=== PATIENT | female | born 1950 | race Caucasian/White ===

== ENCOUNTER → 2017-02-14 | Outpatient (CLI) | payer BC ==
[~2017-02-14] MED LIST: CHOL1000 PO; DICY10CA12 PO; DIPH25CA37 PO; DOCU100C31 PO; DRGTP12 TOP; ESCI1TAB10 PO; HYDR25TA5 PO; MAGIC1 PO; MECL1TAB42 PO; NSNN50 NAE; ONDA4TAB7 SL; OXYC-57 PO; OXYC1CAP5 PO; POLY335019 PO; POTA1080 PO; PROM25TA9 PO; TRAZ50TA35 PO
--- NOTE | 2017-02-15 08:09 | DIAGNOSTIC IMAGING REPORT ---
MRI soft tissue neck SOFT TISSUE NECK W/O CONTRAST CLINICAL HISTORY: NEOPLASM UNCERTAIN BEHAVIOR OF SKIN neoplasm TECHNIQUE: Multiaxial MRI acquisition. No contrast-enhanced or progressive COMPARISON STUDY: None FINDINGS: Endotracheal study to interpret the absence of prior studies as well as a history of prior multiple surgical procedures. At the level of the left anterior chain is an area of diminished signal on T1 images. This measures 10 x 12 x 10.5 mm. Appears to extend focally to the anterior periosteum of the anterior mandible. Bulk of it is within the subcutaneous soft tissues. No definite bony involvement. No abnormal periostitis. No significant cervical adenopathy. Major salivary glands are intact. IMPRESSION: 1. 10 x 12 x 10.5 mm area of hypodensity within the subcutaneous tissues left anterior mentum . 2. There appears to be potential linear fibrotic stranding to the anterior periosteum of the anterior mandible although no evidence for periostitis, bone marrow replacement or other bony abnormality is apparent. 3. Note is made of no evidence for vascular or significant perineural invasion within limitations of an unenhanced scan. 4. No significant kathe pathology. Electronically signed by: Parth Welsl M.D. 02/15/2017 8:07 AM Dictated Date/Time: 02/15/2017 8:04 AM
== END | disposition home or self-care (01) ==
LOC: C.MRI 18:11
PROVIDERS: ATTEND Otolaryngology
DX: D48.5 Neoplasm of uncertain behavior of skin (principal)

== ENCOUNTER → 2017-02-22 | Outpatient (CLI) | payer BC ==
--- NOTE | 2017-02-22 15:08 | MAMMOGRAPHY REPORT ---
BILATERAL DIGITAL SCREENING MAMMOGRAM WITH CAD: 02/22/2017 CLINICAL HISTORY: Routine screening. Patient has no complaints. TECHNIQUE: Current study was also evaluated with a Computer Aided Detection (CAD) system. Bilatera l CC and MLO views were obtained. COMPARISON: Comparison is made to exams dated: 03/29/2015 mammogram, 10/10/2013 mammogram, 10/07/2012 mammogram, 10/04/2011 mammogram, 08/08/2010 mammogram - [facility], and 03/11/2009. BREAST COMPOSITION: There are scattered areas of fibroglandular density in both breasts. FINDINGS: No suspicious masses, calcifications, or areas of architectural distortion are noted in e ither breast. There has been no significant interval change compared to prior exams. Small benign-a ppearing masses in the right breast are stable. IMPRESSION: ACR BI-RADS CATEGORY 2: BENIGN There is no mammographic evidence of malignancy. A 1 year screening mammogram is recommended. The p atient will receive written notification of the results. Approximately 10% of breast cancers are not detected with mammography. A negative mammographic repor t should not delay biopsy if a clinically suggestive mass is present. Ayana Enciso M.D. ah/:02/22/2017 10:30:58 Wire Taper: Romelia LAGUNAS(Ct)(M), [facility] letter sent: Normal 1/2 BI-RADS Code: ACR BI-RADS Category 2: Benign
== END | disposition home or self-care (01) ==
LOC: C.MAMM 09:48
PROVIDERS: ATTEND Family Medicine
DX: Z12.31 Encounter for screening mammogram for malignant neoplasm of breast (principal); Z13.820 Encounter for screening for osteoporosis; M85.851 Other specified disorders of bone density and structure, right thigh; M85.852 Other specified disorders of bone density and structure, left thigh; M85.88 Other specified disorders of bone density and structure, other site

== ENCOUNTER → 2017-06-27 | Outpatient (CLI) | payer BC ==
[~2017-06-27] MED LIST changes: -DIPH25CA37 PO; -DRGTP12 TOP; -MECL1TAB42 PO; -OXYC-57 PO; -POLY335019 PO; -PROM25TA9 PO
[2017-06-27 13:50] VITALS: BP 111/73; PULSE 80; TEMP 37.2; O2SAT 96
--- NOTE | 2017-06-27 17:00 | Radiation Oncology Follow-Up ---
Radiation Oncology Follow-Up Date of Visit Jun 27, 2017. Reason For Visit One-month follow-up Radiation Completion Date 05/31/17 Diagnosis (1) Basal cell carcinoma of chin Status: Acute Onset Date: 01/10/2017 Stage: lll Permanent Comment: Slow growing mass of the left chin Status post punch biopsy 01/10/2017 Basal cell carcinoma, infiltrative/morpheaform type, high risk Status post wide local excision of left chin morpheaform basal cell carcinoma Status post reexcision with reconstruction and Level I lymphadenectomy 2016 Stage pT1 pN1 Status post completion of radiation therapy 05/31/2017. Received 6000 cGy. Last Edited By: Nakita Matias on Jun 11, 2017 11:24 History of Present Illness Ms. Craig is a 66-year-old female who recently was diagnosed with squamous cell carcinoma of the nose. The patient was seen at [facility] in October 2016. The patient was referred to Dr. Cole who evaluated the patient and identified a 10 mm pink papule on the nasal bridge; he did perform a shave biopsy on 12/07/2016 which revealed invasive well- differentiated squamous cell carcinoma that was less than 2 mm thick but extended to the base of the biopsy with no evidence of perineural invasion. The patient underwent Mohs resection for the nose on 01/03/2017 (report unavailable); on the same day of the procedure, the patient complained of a bump on her chin and they did perform a punch biopsy which confirmed basal cell carcinoma that is infiltrative/morpheaform. The patient was seen by Dr. Day from dermatology on 01/30/2017 who did perform multiple punch biopsies to demarcate the boundaries of the basal cell carcinoma of the chin. The patient had an MRI of the soft tissue neck without contrast on 02/14/2017 which revealed a 12 mm area of hypodensity within the subcutaneous tissue of the left anterior mentum; the MRI was otherwise negative and there is no evidence of lymphadenopathy. The patient met with Dr. Daniela Tejeda from dermatologic surgery who then brought the patient to the operating room on 02/26/2017 to perform a wide local excision of the left chin basal cell carcinoma; the pathology revealed basal cell carcinoma, morpheaform type that was infiltrating the adjacent adipose tissue and underlying skeletal muscle. Also noted in the pathology was focal perineural invasion but no evidence of lymphovascular space invasion. The margins were negative radially and deep. The patient then underwent a reconstructive procedure by Dr. Woods from plastic surgery on 03/07/2017 for a skin graft of the left chin as well as a lymph node dissection of level IA. The pathology revealed no evidence of lymph node involvement and no further evidence of carcinoma. Subsequently, the patient did suffer from a suture abscess which was treated successfully with antibiotics. The patient is now being referred for consideration of adjuvant radiation therapy to the chin for her basal cell carcinoma. We are now seeing the patient in consultation. Overall, the patient is doing quite well. She does state that she may have further reconstructive surgery from Dr. Woods after the completion of radiation therapy. She completed radiation therapy 05/31/2017. She received 6000 cGy. Interim History She has steadily been improving over the past month. She does continue to have intermittent pain in her chin. This can radiate toward surgery on both sides. She had been requiring oxycodone on a regular basis at the end of treatment. She has been able to decrease and discontinue the medication. She now uses ibuprofen. She takes 400 mg at 7:00 each evening. The discomfort is noted especially towards evening and this helps to relieve pain. Today she gives a pain level of 0. There is a firm area in the center of the chin. This is the area that is sensitive to touch. The soreness on the inside of the lip resolved. She did not require any mouth rinses. She continues regular follow- up with Dr. Tejeda. She is seeing her every 3 months. She will see Dr. Woods on 07/04/2017. She states that there will be continued discussion on future reconstructive surgery. The skin irritation resolved without difficulty. She is also pleased with the skin graft. She feels that the skin tone now matches the skin tone of her face. Allergies Coded Allergies: Wheat (Verified Allergy, Severe, DIFFICULTY BREATHING, 06/20/13) Iodinated Contrast Media (Verified Allergy, Intermediate, SEVERE HIVES, ) Penicillins (Unverified Allergy, Mild, 12/28/11) SHELLFISH (Verified Allergy, Unknown, HIVES, 12/28/11) Tetracycline (Verified Adverse Reaction, Unknown, NAUSEA, 12/28/11) Home Medications Scheduled Cholecalciferol (Vitamin D3), 1 TAB PO DAILY Docusate Sodium (Docusate Sodium), 2 CAP PO DAILY Escitalopram Oxalate (Lexapro), 1 TAB PO DAILY Hydrochlorothiazide (Hydrochlorothiazide), 25 MG PO BID Mometasone Furoate (Nasal) (Nasonex), 2 SPRAYS MAKAYLA BID Potassium Citrate (Urocit-K), 15 MEQ PO DAILY Trazodone Hcl (Trazodone), 50 MG PO HS Scheduled PRN Dicyclomine Hcl (Dicyclomine Hcl), 1 CAP PO Q6H PRN for bowels Ondansetron (Zofran Odt), 1-2 TABS SL Q6H PRN for Nausea Review of Systems Gastrointestinal: Symptoms: Nausea GI Comments: Waves of nausea over the day - uncertain of cause;has antiemetics; Oral: Symptoms: No Problems Respiratory: Symptoms: WNL Urinary: Symptoms: WNL Skin: Symptoms: No Problems Additional Notes: She completed a distress management report and answered "no" to all questions other than she has concerns about pain in the future. Physical Exam Vital Signs Date Time Temp Pulse Resp B/P (MAP) Pulse Ox O2 Delivery O2 Flow Rate FiO2 06/27/17 13:50 37.2 80 20 111/73 96 Fatigue: None General Appearance: no apparent distress Eyes: normal inspection, EOMI ENT: normal ENT inspection, pharynx normal, + pertinent finding (postoperative changes of the chin. Tenderness to palpation in the center of the chin. Fibrous tissue in this area. There is no wet or dry desquamation. There is no erythema.) Neck: no adenopathy, thyroid normal Respiratory/Chest: lungs clear, no respiratory distress, no accessory muscle use Cardiovascular: regular rate, rhythm, no gallop, no murmur Abdomen: non tender Extremities: no pedal edema Neurologic/Psychiatric: no motor/sensory deficits, alert, normal mood/affect Skin: warm/dry Assessment & Plan Plan: Patient is also seen by Dr. Muhammad. Continue follow-up with Dr. Tejeda, her primary care physician and Dr. Lopez. She'll continue the ibuprofen in the evening only. We asked her to return to our office in 6 months. She may call if she has any questions or concerns in the interim. Assessment & Plan (Attending) ADDENDUM: I agree with note created by Nakita Matias PA-C. I reviewed the patient's chart and information with her. I have examined and evaluated the patient. I reviewed relevant clinical information and answered the patient's and /or family's questions. RN HEMO DIALYSIS Total Time In Follow-Up I spent 20 minutes speaking to the patient performing examination. I spent 15 minutes reviewing information in completing this note. AK Total Time (Attending) In Follow-Up I spent 15 minutes examining and counseling the patient. RN HEMO DIALYSIS Copy To Daniela Tejeda M.D.; Ayden Armstrong M.D.
== END | disposition home or self-care (01) ==
LOC: C.ONC 13:47
PROVIDERS: ATTEND Physician Assistant Medical
DX: Z08 Encounter for follow-up examination after completed treatment for malignant neoplasm (principal); Z92.3 Personal history of irradiation; Z85.828 Personal history of other malignant neoplasm of skin

== ENCOUNTER → 2017-11-15 | Outpatient (CLI) | payer BC ==
[~2017-11-15] MED LIST changes: -MAGIC1 PO; -OXYC1CAP5 PO
--- NOTE | 2017-11-15 09:28 | DIAGNOSTIC IMAGING REPORT ---
KUB HISTORY: Nephrolithiasis with recent past kidney stones NEPHROLITHIASIS COMPARISON: KUB 08/31/2016. FINDINGS: The bowel gas pattern is non-obstructive. Moderate stool volume is noted throughout the ascending colon and hepatic flexure. There is no organomegaly. Previously noted punctate calculi of the mid pole left kidney are not clearly seen. The right renal shadow is partially secured by bowel gas. Punctate calculi of the inferior pole left kidney are seen measuring up to 2 mm. No definite ureteral calculi. Calcifications of the pelvis suggest phleboliths. No pneumoperitoneum or pneumatosis. No fracture. IMPRESSION: 1. Left-sided nephrolithiasis with previously noted punctate calculi of the interpolar left kidney not identified on today's study. 2. Right renal shadow partially obscured by bowel gas. 3. No ureteral calculi identified. Electronically signed by: David Mosley M.D. 11/15/2017 9:27 AM Dictated Date/Time: 11/15/2017 9:25 AM
[2017-11-15 10:07] LABS: ALBUMIN 3.9 gm/dl (3.4-5.0); ALT/SGPT 15 U/L (12-78); AST/SGOT 14 U/L (15-37); BLOOD UREA NITROGEN 18 mg/dl (7-18); CALCIUM 9.1 mg/dl (8.5-10.1); CARBON DIOXIDE 31 mmol/L (21-32); CHOLESTEROL 248 mg/dl (0-200); CREATININE 0.74 mg/dl (0.60-1.20); GLUCOSE 82 mg/dl (70-99); POTASSIUM 3.6 mmol/L (3.5-5.1); SODIUM 137 mmol/L (136-145)
[2017-11-15 10:11] LABS: ALKALINE PHOSPHATASE 96 U/L (45-117); LDL CHOLESTEROL CALCULATED 160 mg/dl
== END | disposition home or self-care (01) ==
LOC: C.LAB 08:31
PROVIDERS: ATTEND Urology
DX: N20.0 Calculus of kidney (principal); N39.0 Urinary tract infection, site not specified; Z86.74 Personal history of sudden cardiac arrest; N30.01 Acute cystitis with hematuria

== ENCOUNTER → 2017-12-27 | Outpatient (CLI) | payer BC ==
[~2017-12-27] MED LIST changes: +GABA100C13 PO
[2017-12-27 13:58] VITALS: BP 122/83; PULSE 82; TEMP 36.7; O2SAT 94
--- NOTE | 2017-12-27 15:33 | Radiation Oncology Follow-Up ---
Radiation Oncology Follow-Up Date of Visit Dec 27, 2017. Reason For Visit Six-month follow-up Radiation Completion Date finished 05-31-2017 Diagnosis (1) Basal cell carcinoma of chin Status: Resolved Onset Date: 01/10/2017 Stage: lll Permanent Comment: Slow growing mass of the left chin Status post punch biopsy 01/10/2017 Basal cell carcinoma, infiltrative/morpheaform type, high risk Status post wide local excision of left chin morpheaform basal cell carcinoma Status post reexcision with reconstruction and Level I lymphadenectomy 2016 Stage pT1 pN1 Status post completion of radiation therapy 05/31/2017. Received 6000 cGy. Last Edited By: Nakita Matias on Jun 11, 2017 11:24 History of Present Illness Ms. Craig was diagnosed with squamous cell carcinoma of the nose. The patient was seen at [facility] in October 2016. The patient was referred to Dr. Cole who evaluated the patient and identified a 10 mm pink papule on the nasal bridge; he did perform a shave biopsy on 12/07/2016 which revealed invasive well-differentiated squamous cell carcinoma that was less than 2 mm thick but extended to the base of the biopsy with no evidence of perineural invasion. The patient underwent Mohs resection for the nose on 01/03/2017 (report unavailable); on the same day of the procedure, the patient complained of a bump on her chin and they did perform a punch biopsy which confirmed basal cell carcinoma that is infiltrative/morpheaform. The patient was seen by Dr. Day from dermatology on 01/30/2017 who did perform multiple punch biopsies to demarcate the boundaries of the basal cell carcinoma of the chin. The patient had an MRI of the soft tissue neck without contrast on 02/14/2017 which revealed a 12 mm area of hypodensity within the subcutaneous tissue of the left anterior mentum; the MRI was otherwise negative and there is no evidence of lymphadenopathy. The patient met with Dr. Daniela Tejeda from dermatologic surgery who then brought the patient to the operating room on 02/26/2017 to perform a wide local excision of the left chin basal cell carcinoma; the pathology revealed basal cell carcinoma, morpheaform type that was infiltrating the adjacent adipose tissue and underlying skeletal muscle. Also noted in the pathology was focal perineural invasion but no evidence of lymphovascular space invasion. The margins were negative radially and deep. The patient then underwent a reconstructive procedure by Dr. Woods from plastic surgery on 03/07/2017 for a skin graft of the left chin as well as a lymph node dissection of level IA. The pathology revealed no evidence of lymph node involvement and no further evidence of carcinoma. Subsequently, the patient did suffer from a suture abscess which was treated successfully with antibiotics. The patient is now being referred for consideration of adjuvant radiation therapy to the chin for her basal cell carcinoma. We are now seeing the patient in consultation. Overall, the patient is doing quite well. She does state that she may have further reconstructive surgery from Dr. Woods after the completion of radiation therapy. She completed radiation therapy 05/31/2017. She received 6000 cGy. Interim History She has been doing well in regards to recovery from the surgery and treatment of the chin area. She had significant submental edema following therapy. This is steadily improved. She has been followed by her plastic surgeon Dr. felipe Bullock. She has had 3 injections which greatly improved the submental edema. She was having pain along the lower lip central chin that was very significant. She was started on gabapentin which was steadily increased. With this medication the pain resolved. She unfortunately had a severe reaction of anaphylaxis when undergoing an MRI. She had cardiac arrest respiratory arrest. She was hospitalized. She suffered a sternum fracture as well as fractured ribs with the CPR. She has steadily recuperated from that hospitalization. Allergies Coded Allergies: Gadobutrol (Verified Allergy, Severe, ANAPHYLAXIS, 12/27/17) Wheat (Verified Allergy, Severe, DIFFICULTY BREATHING, 06/20/13) Iodinated Contrast Media (Verified Allergy, Intermediate, SEVERE HIVES, ) Penicillins (Unverified Allergy, Mild, 12/28/11) Shellfish (Verified Allergy, Unknown, HIVES, 12/28/11) Tetracycline (Verified Adverse Reaction, Unknown, NAUSEA, 12/28/11) Home Medications Scheduled Cholecalciferol (Vitamin D3), 1 TAB PO DAILY Docusate Sodium (Docusate Sodium), 2 CAP PO DAILY Escitalopram Oxalate (Lexapro), 1 TAB PO DAILY Gabapentin (Neurontin), 1 CAP PO QID Hydrochlorothiazide (Hydrochlorothiazide), 25 MG PO BID Mometasone Furoate (Nasal) (Nasonex), 2 SPRAYS MAKAYLA BID Potassium Citrate (Urocit-K), 15 MEQ PO DAILY Trazodone Hcl (Trazodone), 50 MG PO HS Scheduled PRN Dicyclomine Hcl (Dicyclomine Hcl), 1 CAP PO Q6H PRN for bowels Ondansetron (Zofran Odt), 1-2 TABS SL Q6H PRN for Nausea Review of Systems Gastrointestinal: Symptoms: WNL GI Comments: occ gets an altered taste in mouth Oral: Symptoms: No Problems, Scant Saliva/Dry Mouth Other Oral Symptoms: "using biotene toothpaste and it helps " Respiratory: Symptoms: WNL Urinary: Symptoms: WNL Skin: Symptoms: No Problems Other Skin Symptoms: " skin on chin is tight " Physical Exam Vital Signs Date Time Temp Pulse Resp B/P (MAP) Pulse Ox O2 Delivery O2 Flow Rate FiO2 12/27/17 13:58 36.7 82 16 122/83 94 Fatigue: None General Appearance: no apparent distress Eyes: normal inspection, EOMI ENT: normal ENT inspection, hearing grossly normal, pharynx normal Neck: no adenopathy, + pertinent finding (She has 2 well-healed incisions in the central and left submental area. There is a small amount of submental edema between the incisions. There are no masses or tenderness. There is no adenopathy of the submental area or submandibular area. There is no adenopathy of the supraclavicular area or frontal or posterior cervical chains.) Respiratory/Chest: lungs clear, no respiratory distress, no accessory muscle use Cardiovascular: regular rate, rhythm, no gallop, no murmur Extremities: no pedal edema Neurologic/Psychiatric: no motor/sensory deficits, alert, normal mood/affect Pain Management Patient Reports Pain: No Side: Bilateral Patient Preferred Pain Scale: 0 - 10 Initial Pain Intensity: 0.0 Pain Management Plan She is currently without pain under treatment with gabapentin. Laboratory Laboratory Results: not applicable Pathology Pathology Results: not applicable Imaging Imaging Studies: not applicable Assessment & Plan Plan: She was also seen and examined by Dr. Muhammad. She will continue regular follow-up with Dr. Tejeda and Dr. Lopez. This coming Sunday she is going to undergo surgery for revision of the left lateral chin incision. In the future that she will be having revision of the central incision. Follow-up appointment with our office was not given. She feels comfortable to continue her follow-up to dermatology and plastic surgery. She may call our office if she has any questions or concerns. Assessment & Plan (Attending) I agree with note created by Nakita Matias PA-C. I reviewed the patient's chart and information with her. I have examined and evaluated the patient. I reviewed relevant clinical information and answered the patient's and/or family' s questions. CYLINDER GRINDER Total Time In Follow-Up I spent 20 minutes speaking to the patient and performing examination. I spent 15 minutes reviewing information and completing this note. AK Total Time (Attending) In Follow-Up I spent 15 minutes examining and counseling the patient. CYLINDER GRINDER Copy To Daniela Tejeda M.D.; Ayden Armstrong M.D.
== END | disposition home or self-care (01) ==
LOC: C.ONC 13:49
PROVIDERS: ATTEND Physician Assistant Medical
DX: Z08 Encounter for follow-up examination after completed treatment for malignant neoplasm (principal); Z92.3 Personal history of irradiation; Z85.828 Personal history of other malignant neoplasm of skin

== ENCOUNTER 2020-12-25 10:37 | Inpatient (IN) ==
[2020-12-25] MEDS ORDERED: MoRPHine SULFATE 4 MG/ML 1 ML CARP\\VIAL IV STA ×2 (11:20→12:26)
[2020-12-25] MEDS ORDERED: KETOROLAC TROMETHAMINE 15 MG/ML VIAL IV ONE (11:20)
[2020-12-25] MEDS ORDERED: SODIUM CHLORIDE 0.9% 1000ML 2,000 ML IV ONE (11:20)
[2020-12-25] MEDS ORDERED: ONDANSETRON INJ 2 MG/ML 2 ML VIAL IV STA ×2 (11:20→13:40)
--- NOTE | 2020-12-25 11:21 | Emergency Department Note ---
Impression & Plan Renal colic, Hydronephrosis, Acute hypokalemia ED Provider Note NAME: SILKE JOHNSON AGE: 70 SEX: F : 1950 ARRIVES VIA: Walk-In INFORMANT: Patient ED PROVIDER(S): Javan Messer DO CHIEF COMPLAINT: Left flank pain HPI: Patient is a 70-year-old female who presents ER for left flank pain. She is a past medical history which includes kidney stones, complete hysterectomy and asthma. Her pain started about 1 week ago. She admits to nausea and dry heaving. Denies any fevers. No headache or change in vision. No chest pain or shortness of breath. Pain initially started in the back now is in the left lower quadrant. Denies any dysuria urgency or frequency but she has difficulty urinating now. No other exacerbating or remitting factors. Denies any fevers. No hematuria that she is aware of. ROS: See above HPI for pertinent positives & negatives. A total of 10 systems reviewed and were otherwise negative. PAST MEDICAL HISTORY:See Below PAST SURGICAL HISTORY:See Below FAMILY HISTORY:See Below SOCIAL HISTORY:See Below HOME MEDICATIONS:See Below ALLERGIES:See Below VITALS:See Below PHYSICAL EXAMINATION: GENERAL: Sitting up in bed, alert, moderate distress holding left flank EYE EXAM: normal conjunctiva. OROPHARYNX: no exudate, no erythema, lips, buccal mucosa, and tongue normal and mucous membranes are moist NECK: supple, no nuchal rigidity, no adenopathy, non-tender LUNGS: Clear to auscultation. Normal chest wall mechanics HEART: no murmurs, S1 normal and S2 normal ABDOMEN: abdomen soft, non-tender, normo-active bowel sounds, no masses, no rebound or guarding. UPPER EXTREMITIES: upper extremities are grossly normal. LOWER EXTREMITIES: No pitting edema. NEURO EXAM: Normal sensorium, cranial nerves II-XII grossly intact, normal speech, no gross weakness of arms, no gross weakness of legs. MEDICAL DECISION MAKING: Patient is a 70-year-old female who presents the ER for severe left flank pain which is been going on for the past week and significantly worsened recently. IV was established blood work was obtained. Labs showed no significant leukocytosis or anemia. BMP with a mild hypokalemia 3.2. LFTs bilirubin was unremarkable. Lipase was normal. UA with hematuria but no white cells. No signs of infection. CT shows 6 mm distal left ureteral stone. She was given IV Toradol along with 3 dose of IV morphine. She was still having persistent pain. She was discussed with the hospitalist for observation as I favored she would likely not be controlled as an outpatient with oral medications at this point. Her flank pain did wrap around more anteriorly and consequently EKG was obtained and was unremarkable. Triage Nursing notes reviewed. Limited review of prior medical records performed Vital Signs: reviewed and remarkable for no significant abnormalities Differential diagnosis: Differential diagnoses includes but is not limited to gastritis, peptic ulcer disease, GERD, gallbladder disease, pancreatitis, small bowel obstruction, acute coronary syndrome, pericarditis, ischemic bowel, irritable bowel disease, irritable bowel syndrome, appendicitis, diverticulitis, malignancy, hernia, urinary tract infection, torsion, perforation, trauma, infectious. ER treatment provided: See below Diagnostics interpreted by me: ECG: Sinus rhythm rate 68 Normal axis No PVCs QTC 472 Cardiac Monitoring: An order was placed for continuous cardiac monitoring. The monitor shows a rate of 81 with sinus rhythm. Laboratory studies: As stated above and show below. Imaging studies: See below Consultation(s): Discussed with Dr. Noland further evaluation Procedures: none Critical Care: None Past Med/Surg History Medical History Asthma Basal cell carcinoma of chin (01/10/17) "Slow growing mass of the left chin Status post punch biopsy 01/10/2017 Basal cell carcinoma, infiltrative/morpheaform type, "high risk" Status post wide local excision of left chin morpheaform basal cell carcinoma 02/26/2017 Status post reexcision with reconstruction and Level I lymphadenectomy 03/07/2017 Stage pT1 pN1 Status post completion of radiation therapy 05/31/2017. Received 6000 cGy." On 03/29/17 11:22 Laura Muhammad wrote "Slow growing mass of the left chin Status post punch biopsy 01/10/2017 Basal cell carcinoma, infiltrative/morpheaform type, "high risk" Status post wide local excision of left chin morpheaform basal cell carcinoma 02/26/2017 Status post reexcision with reconstruction and Level I lymphadenectomy 03/07/2017 Stage pT1 pN0" On 03/29/17 10:23 Nakita Matias wrote "Slow growing mass of the left chin Status post punch biopsy 01/10/2017 Basal cell carcinoma, infiltrative/morpheaform type Status post wide local excision of left chin morpheaform basal cell carcinoma 02/26/2017 Status post reexcision with reconstruction and Level I lymphadenectomy 03/07/2017 Stage pT1 pN0" Bronchitis Kidney stones Surgical History H/O: hysterectomy Social History Smoking Status: Never smoker Hx Alcohol Use: Yes Hx Substance Use: No Preferred Language: Faroese Communication Ability: Effective [employer] Required: No Beliefs That Will Affect Care: None Current Living Situation: Spouse Other Information That Helps Us Care for You: No Feels Safe at Home: Yes Safety Concerns: Feels Safe At This Time Assistive Devices: Glasses Allergies Allergies Allergy/AdvReac Type Severity Reaction Status Date / Time gadobutrol Allergy Severe ANAPHYLAXIS Verified 12/25/20 13:09 Iodinated Contrast Media Allergy Severe Anaphylaxis Verified 12/25/20 13:09 wheat Allergy Severe DIFFICULTY Verified 12/25/20 13:09 BREATHING Penicillins Allergy Mild Unknown Verified 12/25/20 13:09 shellfish derived Allergy Unknown HIVES Verified 12/25/20 13:09 tetracycline AdvReac Unknown NAUSEA Verified 12/25/20 13:09 Home Meds Home Medications Medication Instructions Recorded Confirmed Cannibis Oil 1 dose TOPICAL DIRECTED PRN 06/01/20 12/25/20 cholecalciferol (vitamin D3) 1,000 unit PO DAILY 06/01/20 12/25/20 [Vitamin D3] docusate sodium 200 mg PO DAILY 06/01/20 12/25/20 epinephrine 0.3 mg IM DIRECTED PRN 06/01/20 12/25/20 hydrochlorothiazide 25 mg PO BID 06/01/20 12/25/20 potassium citrate 15 meq PO BID 06/01/20 12/25/20 trazodone 50 mg PO HS 06/01/20 12/25/20 Cannibis 1 tab PO DAILY 12/25/20 acetaminophen [Tylenol Extra 2,000 mg PO Q6H PRN 12/25/20 12/25/20 Strength] bupropion HCl 100 mg PO BID 12/25/20 12/25/20 Results & Data (ED) Vital Signs Vital Signs - 24 hr 12/25/20 10:58 12/25/20 11:14 12/25/20 11:30 Temperature 36.5 C Temperature Source Temporal Artery Scan Pulse Rate 80 68 62 Pulse Rate [Apical] Pulse Rate from SpO2 Sensor 58 L 58 L Respiratory Rate 18 15 17 Respiratory Effort / Characteristics Non-Labored Spontaneous Respiratory Depth Normal Respiratory Pattern Blood Pressure 130/84 135/77 Blood Pressure [Left Arm] Blood Pressure Mean 99 96 Blood Pressure Mean [Left Arm] Blood Pressure Position Sitting Pulse Oximetry 97 99 98 Oxygen Delivery Method Room Air Sepsis Recent Fever Within 48 Hours No Sepsis New/Unexplained Change in Mental Status N/A Sepsis Action Taken by Nursing No Action Required 12/25/20 11:31 12/25/20 11:32 12/25/20 11:47 Temperature Temperature Source Pulse Rate 62 62 58 L Pulse Rate [Apical] 62 Pulse Rate from SpO2 Sensor 59 L 58 L Respiratory Rate 14 20 13 Respiratory Effort / Characteristics Non-Labored Spontaneous Respiratory Depth Normal Respiratory Pattern Regular Blood Pressure 139/56 L 132/76 Blood Pressure [Left Arm] 139/56 L Blood Pressure Mean 83 94 Blood Pressure Mean [Left Arm] 83 Blood Pressure Position Pulse Oximetry 99 99 99 Oxygen Delivery Method Room Air Sepsis Recent Fever Within 48 Hours Sepsis New/Unexplained Change in Mental Status Sepsis Action Taken by Nursing 12/25/20 12:00 12/25/20 12:30 12/25/20 12:31 Temperature Temperature Source Pulse Rate 64 67 66 Pulse Rate [Apical] Pulse Rate from SpO2 Sensor 65 72 69 Respiratory Rate 15 17 12 Respiratory Effort / Characteristics Respiratory Depth Respiratory Pattern Blood Pressure 125/90 114/60 Blood Pressure [Left Arm] Blood Pressure Mean 101 78 Blood Pressure Mean [Left Arm] Blood Pressure Position Pulse Oximetry 99 99 98 Oxygen Delivery Method Sepsis Recent Fever Within 48 Hours Sepsis New/Unexplained Change in Mental Status Sepsis Action Taken by Nursing 12/25/20 13:00 12/25/20 13:01 12/25/20 13:02 Temperature Temperature Source Pulse Rate 68 67 68 Pulse Rate [Apical] Pulse Rate from SpO2 Sensor 68 68 68 Respiratory Rate 15 13 14 Respiratory Effort / Characteristics Respiratory Depth Respiratory Pattern Blood Pressure 116/68 Blood Pressure [Left Arm] Blood Pressure Mean 84 Blood Pressure Mean [Left Arm] Blood Pressure Position Pulse Oximetry 99 100 100 Oxygen Delivery Method Sepsis Recent Fever Within 48 Hours Sepsis New/Unexplained Change in Mental Status Sepsis Action Taken by Nursing Laboratory Data Result diagrams: 12/25/20 11:11 12/25/20 11:11 Lab Results 12/25/20 12/25/20 12/25/20 Range/Units 11:11 11:11 11:11 WBC 9.56 (4.8-10.8) K/uL RBC 5.00 (4.2-5.4) M/uL Hgb 16.0 (12.0-16.0) g/dL Hct 45.3 (37-47) % MCV 90.6 (80-100) fL MCH 32.0 (25-34) pg MCHC 35.3 (32-36) g/dL RDW Std Deviation 42.4 (36.4-46.3) fL RDW Coeff of Maritza 12.8 (11.5-14.5) % Plt Count 297 (130-400) K/uL MPV 11.0 H (7.4-10.4) fL Immature Gran % (Auto) 0.2 % Neut % (Auto) 67.3 % Lymph % (Auto) 21.0 % Kimball % (Auto) 8.7 % Eos % (Auto) 2.6 % Baso % (Auto) 0.2 % Neut # (Auto) 6.43 (1.4-6.5) K/uL Lymph # (Auto) 2.01 (1.2-3.4) K/uL Kimball # (Auto) 0.83 H (0.11-0.59) K/uL Eos # (Auto) 0.25 (0-0.5) K/uL Baso # (Auto) 0.02 (0-0.2) K/uL Immature Gran # (Auto) 0.02 (0.00-0.02) K/uL Sodium 138 (136-145) mmol/L Potassium 3.2 L (3.5-5.1) mmol/L Chloride 102 (98-107) mmol/L Carbon Dioxide 30 (21-32) mmol/L Anion Gap 6.0 (3-11) BUN 22 H (7-18) mg/dl Creatinine 1.29 H (0.6-1.2) mg/dl Est Cr Clr Drug Dosing 36.3 ml/min Est GFR ( Amer) 48.2 Est GFR (Non-Af Amer) 41.6 BUN/Creatinine Ratio 16.7 (10-20) Glucose 93 (70-99) mg/dl Calcium 10.3 H (8.5-10.1) mg/dl Total Bilirubin 0.9 (0.2-1) mg/dl AST 15 (15-37) U/L ALT 17 (12-78) U/L Alkaline Phosphatase 87 (45-117) U/L Total Protein 7.5 (6.4-8.2) gm/dl Albumin 3.9 (3.4-5.0) gm/dl Globulin 3.6 (2.5-4.0) gm/dl Albumin/Globulin Ratio 1.1 (0.9-2) Lipase 219 (73-393) U/L Urine Color Dark Yellow Urine Appearance Clear (Clear) Urine pH 5.0 (4.5-7.5) Ur Specific [place] > 1.045 H (1.000-1.030) Urine Protein Negative (Negative) Urine Glucose (UA) Negative (Negative) Urine Ketones Trace H (Negative) Urine Blood Trace H (Negative) Urine Nitrite Negative (Negative) Urine Bilirubin 1+ H (Negative) Urine Urobilinogen Negative (Negative) Ur Leukocyte Esterase Negative (Negative) Urine WBC (Auto) 1-5 (0-5) /hpf Urine RBC (Auto) 10-30 H (0-4) /hpf U Hyaline Cast (Auto) 5-10 H (0-5) /lpf U Epithel Cells (Auto) >30 H (0-5) /lpf Urine Bacteria (Auto) Negative (Negative) Administered Medications Potassium Chloride 40 meq/ (Sodium Chloride) 1,020 mls @ 90 mls/hr IV .[id number] BETH Stop: 01/24/21 14:44 Last Admin: 12/25/20 14:59 Dose: 90 mls/hr Documented by: [id number] Discontinued Medications Sodium Chloride (Nss 1000ml) 2,000 mls @ 999 mls/hr IV .Q2H1M ONE Stop: 12/25/20 13:20 Last Infusion: 12/25/20 13:33 Dose: 0 mls/hr Documented by: [id number] Admin: 12/25/20 11:27 Dose: 999 mls/hr Documented by: [id number] Ketorolac Tromethamine (Ketorolac Tromethamine 15 Mg/Ml Vial) 10 mg IV NOW ONE Stop: 12/25/20 11:21 Last Admin: 12/25/20 11:27 Dose: 10 mg Documented by: [id number] Morphine Sulfate (Morphine Sulfate 4 Mg/Ml 1 Ml Carp\\Vial) 4 mg IV NOW STA Stop: 12/25/20 11:21 Last Admin: 12/25/20 11:27 Dose: 4 mg Documented by: [id number] Morphine Sulfate (Morphine Sulfate 4 Mg/Ml 1 Ml Carp\\Vial) 4 mg IV NOW STA Stop: 12/25/20 12:27 Last Admin: 12/25/20 12:34 Dose: 4 mg Documented by: [id number] Morphine Sulfate (Morphine Sulfate 10 Mg/Ml Carp/Vial) 6 mg IV NOW STA Stop: 12/25/20 13:02 Last Admin: 12/25/20 13:20 Dose: 6 mg Documented by: [id number] Ondansetron HCl (Ondansetron Inj 2 Mg/Ml 2 Ml Vial) 4 mg IV NOW STA Stop: 12/25/20 11:21 Last Admin: 12/25/20 11:27 Dose: 4 mg Documented by: [id number] Ondansetron HCl (Ondansetron Inj 2 Mg/Ml 2 Ml Vial) 4 mg IV NOW STA Stop: 12/25/20 13:41 Last Admin: 12/25/20 13:46 Dose: 4 mg Documented by: [id number] Discharge Plan Visit Data Chief Complaint: Kidney Stone Stated Complaint: KIDNEY STONE ED Provider: Javan Messer Discharge Problem: Renal colic, Hydronephrosis, Acute hypokalemia Patient Disposition: Admitted As Inpatient Discharge Instructions Interventions: ED Discharge Assessment Last Done: 12/25/20 14:01 Discharge Problem: Hydronephrosis Qualifiers: Hydronephrosis type: unspecified Qualified Code(s): N13.30 - Unspecified hydronephrosis
[2020-12-25 11:39] LABS: Basophils # (auto) 0.02 K/uL (0-0.2); Basophils % (auto) 0.2 %; Eosinophils # (auto) 0.25 K/uL (0-0.5); Eosinophils % (auto) 2.6 %; Hematocrit (blood only) 45.3 % (37-47); Immature Granulocytes # (auto) 0.02 K/uL (0.00-0.02); Immature Granulocytes % (auto) 0.2 %; Lymphocytes # (auto) 2.01 K/uL (1.2-3.4); Mean Corpuscular Hgb Conc 35.3 g/dL (32-36); Mean Corpuscular Volume 90.6 fL (80-100); Monocytes # (auto) 0.83 K/uL (0.11-0.59); Monocytes % (auto) 8.7 %; Neutrophils # (auto) 6.43 K/uL (1.4-6.5); Neutrophils % (auto) 67.3 %; Platelet Count 297 K/uL (130-400); RDW Coefficient of Variation 12.8 % (11.5-14.5); RDW Standard Deviation 42.4 fL (36.4-46.3); White Blood Count 9.56 K/uL (4.8-10.8)
[2020-12-25 11:45] LABS: Appearance Urine Clear (Clear); Bacteria Urine Automated Negative (Negative); Bilirubin Urine 1+ (Negative); Blood Urine Trace (Negative); Color Urine Dark Yellow; Epithelial Cell Urine Auto >30 /lpf (0-5); Glucose Urine UA Negative (Negative); Ketones Urine Trace (Negative); Leukocyte Esterase Urine Negative (Negative); Nitrite Urine Negative (Negative); Protein Urine Negative (Negative); Specific Gravity Urine > 1.045 (1.000-1.030); Urobilinogen Urine Negative (Negative)
--- NOTE | 2020-12-25 11:59 | CT Scan Report ---
CT SCAN OF THE ABDOMEN AND PELVIS WITHOUT IV CONTRAST CLINICAL HISTORY: Left flank pain. COMPARISON STUDY: Abdominal CT dated 06/01/2020. TECHNIQUE: CT scan of the abdomen and pelvis is performed from the lung bases to the proximal femora. Images are reviewed in the axial, sagittal, and coronal planes. IV contrast was not administered for this examination. A dose lowering technique was utilized adhering to the principles of ALARA. CT DOSE: 318.04 mGy.cm FINDINGS: Lung bases: The heart is normal in size and without pericardial effusion. A fat-containing Bochdalek hernia is noted at the right lung base. There is no airspace consolidation or pleural effusion. A 4 m m right lower lobe pulmonary nodule seen on image #29 and a 3 mm pleural-based nodule in the right lo wer lobe seen on image #18 are unchanged from previous. Liver: The unenhanced liver is normal in size, contour, and attenuation. There is no intrahepatic juan iary ductal dilatation. Gallbladder: Surgically absent noting clips in the gallbladder fossa. Spleen: Normal in size and attenuation. Pancreas: The unenhanced pancreas is mildly atrophic and grossly unremarkable. Adrenal glands: Unremarkable. Kidneys: The unenhanced kidneys demonstrate mild cortical atrophy. There is a 6 mm obstructing calcul us in the distal left ureter located just above the vesicoureteral junction seen on image #352. This causes moderate left hydroureteronephrosis. There are 2 additional tiny nonobstructing left renal ghulam culi. There are least 2 small nonobstructing right renal calculi which measure up to 4 mm. There is n o right-sided hydronephrosis. A 1.5 cm peripelvic cyst is noted on the right. There is no evidence of contour deforming renal mass lesion. Abdominal vasculature: The abdominal aorta is normal in course and caliber noting moderate atheroscle rotic calcification. Bowel: There are scattered colonic diverticula without CT evidence of acute diverticulitis. No bowel obstruction is seen. Mild fecal retention is noted throughout the colon. The appendix is not identif ied and reported surgically absent. Peritoneum: There is no intraperitoneal free air or abdominal ascites. Lymphadenopathy: None. Pelvic viscera: The bladder is decompressed and grossly unremarkable. The uterus is surgically absent . No adnexal lesion is seen. Skeletal structures: The skeletal structures are osteopenic. There is mild lumbosacral spondylosis. N o lytic or blastic lesions are seen. IMPRESSION: 1. There is a 6 mm obstructing calculus in the distal left ureter located just above the vesicoureter al junction. This causes moderate left hydroureteronephrosis. 2. Additional small nonobstructing calculi are seen bilaterally. 3. Additional findings as above. ACT 112: Negative or not required by law. Electronically signed by: Tyrell Clinton M.D. 12/25/2020 11:58 AM
[2020-12-25 12:04] LABS: Albumin Level 3.9 gm/dl (3.4-5.0); BUN Creatinine Ratio 16.7 (10-20); Calcium 10.3 mg/dl (8.5-10.1); Creatinine Clr Calc Pharmacy 36.3 ml/min; Est GFR (African American) 48.2; Est GFR (Non-African American) 41.6; Potassium 3.2 mmol/L (3.5-5.1)
[2020-12-25 12:08] LABS: Albumin Globulin Ratio 1.1 (0.9-2); Bilirubin,Total 0.9 mg/dl (0.2-1); Globulin 3.6 gm/dl (2.5-4.0); Total Protein 7.5 gm/dl (6.4-8.2)
[2020-12-25] MEDS ORDERED: MoRPHine SULFATE 10 MG/ML CARP/VIAL IV STA (13:01)
--- NOTE | 2020-12-25 13:45 | History & Physical Report ---
Date of Service December 25, 2020 Assessment & Plan (1) Kidney stones: Admit to medical will consult Urology Will place on IVF, Start tamsulosin. Given size of stone possibility of spontaneously passing stone. placed on pain medicine and nausea medicine. toradol, and morphine for pain. Zofran and compazine for nausea PRN. Continue HCTZ for kidney stone prevention (2) Anxiety: controlled will resume home meds (3) Hydronephrosis, left: if does not sontaneously pass stone, will consult urology. History of Present Illness Chief Complaint: kidney stone. Primary Care Provider: Hardeep Mathew MD 70 yo female who has history of kidney stones since she was a child. She reports this episode began last week, with left sided back pain and abdominal pain right below her rib cage. She had hoped it would spontaneously improve. She drank plenty of water and a few days ago, he pain intensified and was now located in her groin. Pain continued and was accompanied by nausea and vomiting, which prompted her to come in to the ED. Allergies Allergy/AdvReac Type Severity Reaction Status Date / Time gadobutrol Allergy Severe ANAPHYLAXIS Verified 12/25/20 13:09 Iodinated Contrast Media Allergy Severe Anaphylaxis Verified 12/25/20 13:09 wheat Allergy Severe DIFFICULTY Verified 12/25/20 13:09 BREATHING Penicillins Allergy Mild Unknown Verified 12/25/20 13:09 shellfish derived Allergy Unknown HIVES Verified 12/25/20 13:09 tetracycline AdvReac Unknown NAUSEA Verified 12/25/20 13:09 Home Medications Medication Instructions Recorded Confirmed Type Cannibis Oil 1 dose TOPICAL DIRECTED PRN 06/01/20 12/25/20 History cholecalciferol (vitamin D3) 1,000 unit PO DAILY 06/01/20 12/25/20 History [Vitamin D3] docusate sodium 200 mg PO DAILY 06/01/20 12/25/20 History epinephrine 0.3 mg IM DIRECTED PRN 06/01/20 12/25/20 History hydrochlorothiazide 25 mg PO BID 06/01/20 12/25/20 History potassium citrate 15 meq PO BID 06/01/20 12/25/20 History trazodone 50 mg PO HS 06/01/20 12/25/20 History Cannibis 1 tab PO DAILY 12/25/20 History acetaminophen [Tylenol Extra 2,000 mg PO Q6H PRN 12/25/20 12/25/20 History Strength] bupropion HCl 100 mg PO BID 12/25/20 12/25/20 History Past Med/Surg History Medical History Asthma Basal cell carcinoma of chin (01/10/17) "Slow growing mass of the left chin Status post punch biopsy 01/10/2017 Basal cell carcinoma, infiltrative/morpheaform type, "high risk" Status post wide local excision of left chin morpheaform basal cell carcinoma 02/26/2017 Status post reexcision with reconstruction and Level I lymphadenectomy 2016 Stage pT1 pN1 Status post completion of radiation therapy 05/31/2017. Received 6000 cGy." On 03/29/17 11:22 Laura Muhammad wrote "Slow growing mass of the left chin Status post punch biopsy 01/10/2017 Basal cell carcinoma, infiltrative/morpheaform type, "high risk" Status post wide local excision of left chin morpheaform basal cell carcinoma 02/26/2017 Status post reexcision with reconstruction and Level I lymphadenectomy 03/07/2017 Stage pT1 pN0" On 03/29/17 10:23 Nakita Matias wrote "Slow growing mass of the left chin Status post punch biopsy 01/10/2017 Basal cell carcinoma, infiltrative/morpheaform type Status post wide local excision of left chin morpheaform basal cell carcinoma 02/26/2017 Status post reexcision with reconstruction and Level I lymphadenectomy 03/07/2017 Stage pT1 pN0" Bronchitis Kidney stones Surgical History H/O: hysterectomy Social History Smoking Status: Never smoker Hx Alcohol Use: Yes Hx Substance Use: No Preferred Language: Khmer Communication Ability: Effective Bread Molder Required: No Beliefs That Will Affect Care: None Current Living Situation: Spouse Other Information That Helps Us Care for You: No Feels Safe at Home: Yes Safety Concerns: Feels Safe At This Time Assistive Devices: Glasses Review of Systems Constitutional: + body aches; no fever and no sweats Eyes: no diplopia and no decreased night vision Ear, Nose, Mouth, Throat: no ear pain and no ear trauma Respiratory: no change in sputum and no hemoptysis Cardiovascular: no chest pain and no chest pain with activity Gastrointestinal: no bloating and no nausea Genitourinary: no dysuria and no urinary frequency Musculoskeletal: no back pain and no radicular pain Integumentary: no rash Neurologic: no falls and no paralysis Psychiatric: no behavioral changes and no hopelessness Endocrine: no fatigue and no polydipsia Allergy / Immunological: no urticaria Physical Exam Constitutional: WD/WN, vitals as above well developed Eyes: PERRL, conjunctivae normal, anicteric sclerae ENMT: external ear and nose normal, oropharynx normal Neck: trachea midline, no thyromegaly Respiratory: normal respiratory effort, lungs clear to auscultation Cardiovascular: RRR, no murmur, no edema Gastrointestinal (Abdomen): normal bowel sounds, soft, nontender, no hepato splenomegaly Musculoskeletal: no cyanosis or clubbing, extremities motor strength 5/5 Neurologic: moves all extremities and awake Psychiatric: A+Ox3, euthymic affect Genitourinary: CVA tenderness on left Results & Data Results & Data ([facility]) Vital Signs (Past 12 Hours) Vital Signs Temp Pulse Pulse Resp BP BP Pulse Ox 12/25/20 13:01 67 13 116/68 100 12/25/20 13:00 68 15 99 12/25/20 12:31 66 12 98 12/25/20 12:30 67 17 114/60 99 12/25/20 12:00 64 15 125/90 99 12/25/20 11:47 58 L 13 132/76 99 12/25/20 11:32 62 62 20 139/56 L 99 12/25/20 11:31 62 14 139/56 L 99 12/25/20 11:30 62 17 98 12/25/20 11:14 68 15 135/77 99 12/25/20 10:58 36.5 C 80 18 130/84 97 PG Care Time/CCT Total # of Minutes Spent Total Time Spent with Patient: Total time spent is greater than 50% in coordination of care (as documented) at patient's floor/unit and/or counseling patient: Coding Level of Care Code 20949 Initial Inpt Care Lvl 3 Diagnoses Kidney stones N20.0 Anxiety F41.9 Hydronephrosis, left N13.30 Time Spent (min) 35
[2020-12-25] MEDS ORDERED: TAMSULOSIN HCL 0.4 MG CAP PO ONE (13:50)
[2020-12-25] MEDS ORDERED: MoRPHine SULFATE 4 MG/ML 1 ML CARP\\VIAL IV PRN (14:20)
[2020-12-25] MEDS: POTASSIUM CHLORIDE 40 MEQ in SODIUM CHLORIDE 0.9% 1000ML 1,000 ML IV SCH (14:59)
[2020-12-25] MEDS: PROCHLORPERAZINE 5 MG in SYRINGE 4 ML IV PRN ×2 (15:27→19:33)
[2020-12-25] MEDS: buPROPion HCl 100 MG TABLET PO SCH (20:21)
[2020-12-25] MEDS: traZODone HCL 50 MG TAB PO SCH (20:21)
[2020-12-25] MEDS ORDERED: hydroCHLOROthiazide 25 MG TAB PO SCH (21:00)
[2020-12-25] MEDS: ONDANSETRON INJ 2 MG/ML 2 ML VIAL IV PRN (21:10)
[2020-12-25] MEDS: HEPARIN SOD 5,000 UNIT/0.5 ML VIAL SQ SCH (21:10)
[2020-12-26] MEDS: POTASSIUM CHLORIDE 40 MEQ in SODIUM CHLORIDE 0.9% 1000ML 1,000 ML IV SCH ×2 (02:28→14:07)
[2020-12-26] MEDS: HEPARIN SOD 5,000 UNIT/0.5 ML VIAL SQ SCH ×3 (05:41→21:50)
[2020-12-26] MEDS: ONDANSETRON INJ 2 MG/ML 2 ML VIAL IV PRN ×2 (05:49→12:38)
[2020-12-26] MEDS: KETOROLAC TROMETHAMINE 15 MG/ML VIAL IV PRN ×2 (07:05→20:11)
--- NOTE | 2020-12-26 07:53 | Hospitalist Progress Note ---
Date of Service December 26, 2020 Assessment & Plan (1) Kidney stones: * Hx stones on HCTZ * Admitted with L flank pain * Flomax x 1 * CT with 6 mm obstructing calculus in the distal left ureter located just above the vesicoureteral junction with moderate left hydroureteronephrosis. * Urology consulted * S/p Cystoscopy, ureteroscopy, laser lithotripsy and left stent placement(Left) - Olegario Contreras MD on 12/26 * IVF NSS + Kcl -- increased initially from 90cc on admission to 125cc/hr but now that no longer NPO will discontinue * Diet ordered * Pain well controlled * Antiemetics prn * HCTZ held but will resume in AM (Ca initially >10 with normal albumin. Repeat 8.1 with IVF as above) * Labs in AM (2) Acute kidney injury: * Cr elevated to 1.29 on admission with baseline <1, secondary to obstructing stone as above * IVF provided as above with repeat wnl 0.88 * Holding HCTZ for low BP 97/65 and will repeat BMP in AM (3) Hydronephrosis, left: * secondary to stone * see above (4) Anxiety: * Continue home wellbutrin 100mg BID (5) Hypokalemia: * K 3.2 on admission -- added to IVF. Likely secondary to HCTZ use. Takes potassium citrate 15meq BID SUPERVISORY LIFEGUARD (will hold given K 4.3 and holding HCTZ for BP 97/65) for stone prevention * Repeat wnl at 4.3 (6) Hypercalcemia: * Ca 10.3 on admit with albumin 3.9 * Repeat 8.1 after IVF * Monitor on AM labs. Will also add vit D level. On 1,000IU daily (7) IBS (irritable bowel syndrome): * Chronic constipation. probably worsened by elevated calcium * No acute issues however will continue docusate 200mg daily * Day 3 no BM but she states this is not unusual (8) HLD (hyperlipidemia): * Prior lipid panel noted for elevated cholesterol 248. Follows with Dr. Mathew so unsure if repeat done since 2018 but if not would recommend repeating and starting statin if continues to be elevated DVT Prophylaxis * Heparin SQ while inpatient Dispo: continued overnight stay due to with illness and does not feel safe for discharge for tonight Plans for discharge in AM when seen by oncoming team Admission and Anticipated Discharge Date Admission Date: December 25, 2020 Supervising Physician Co-Signing Physician Notes PA Supervision Note: I did not personally see or examine the patient today, but I verified all corrigan points of CIRO James's assessment and plan with the following exceptions/additions: None Subjective Patient evaluated this afternoon. Went to OR for obstructing stone. Doing well post-operatively but did have episode of nausea and required zofran, improved now. Pain improved. States only mild discomfort in terms of "pressure" to her suprapubic region typical for stent. recently diagnosed with lung ca and 30lb weight loss and dealing with illness at current time and she feels that she would be more comfortable with monitoring overnight and discharge early AM tomorrow. Takes HCTZ for elevated calcium/stone treatment. Hx IBS and constipation. Today is day 3 without BM but she states this is not uncommon. No abdominal pain. No fever, chills, chest pain, shortness of breath at this time. Questions/concerns addressed at this time. Review of Systems Review of Systems: All systems reviewed & are unremarkable except as noted in HPI & below Physical Exam Constitutional: WD/WN, vitals as above comfortable; no acute distress Eyes: + anicteric sclerae and PERRL ENMT: Ears: no hearing impairment Neck: normal visual inspection and trachea midline Respiratory: normal respiratory effort; no respiratory distress, no labored breathing and does not use accessory muscles Auscultation: lungs clear to auscultation bilaterally Cardiovascular: Rate/Rhythm: regular rate and regular rhythm Vessels: radial pulses present Extremities: no edema Gastrointestinal (Abdomen): Inspection/Auscultation: abdomen normal to inspection and normal bowel sounds Percussion/Palpation: + abdomen tender (minimal, suprapubic) and abdomen soft; no guarding no CVA tenderness Musculoskeletal: Head/Neck/Chest: normocephalic and head atraumatic Extremities: extremities normal to inspection Skin: warm, dry Neurologic: moves all extremities and awake; not obtunded Speech / Cognition: normal speech Motor/Sensory: no tremor Psychiatric: A+Ox3, euthymic affect Lymphatic: no lymphadenopathy Results & Data Results & Data ([facility]) Vital Signs (Past 12 Hours) Vital Signs Temp Pulse Pulse Resp BP Pulse Ox 12/26/20 07:43 36.9 C 69 18 90/53 L 94 12/26/20 05:45 108/69 12/25/20 22:35 36.4 C L 69 16 82/45 L 92 Laboratory Results 12/26/20 12/26/20 12/25/20 Range/Units 07:21 07:21 13:21 WBC 6.20 (4.8-10.8) K/uL RBC 3.98 L (4.2-5.4) M/uL Hgb 12.5 D (12.0-16.0) g/dL Hct 36.7 L (37-47) % MCV 92.2 (80-100) fL MCH 31.4 (25-34) pg MCHC 34.1 (32-36) g/dL RDW Std Deviation 44.1 (36.4-46.3) fL RDW Coeff of Maritza 13.0 (11.5-14.5) % Plt Count 212 (130-400) K/uL MPV 11.2 H (7.4-10.4) fL Immature Gran % (Auto) 0.2 % Neut % (Auto) 74.0 % Lymph % (Auto) 16.3 % Pine % (Auto) 8.2 % Eos % (Auto) 1.1 % Baso % (Auto) 0.2 % Neut # (Auto) 4.59 (1.4-6.5) K/uL Lymph # (Auto) 1.01 L (1.2-3.4) K/uL Pine # (Auto) 0.51 (0.11-0.59) K/uL Eos # (Auto) 0.07 (0-0.5) K/uL Baso # (Auto) 0.01 (0-0.2) K/uL Immature Gran # (Auto) 0.01 (0.00-0.02) K/uL Sodium 144 (136-145) mmol/L Potassium 4.3 D (3.5-5.1) mmol/L Chloride 113 H (98-107) mmol/L Carbon Dioxide 27 (21-32) mmol/L Anion Gap 5.0 (3-11) BUN 20 H (7-18) mg/dl Creatinine 0.88 D (0.6-1.2) mg/dl Est Cr Clr Drug Dosing 53.2 ml/min Est GFR ( Amer) 76.6 Est GFR (Non-Af Amer) 66.1 BUN/Creatinine Ratio 23.2 H (10-20) Glucose 76 (70-99) mg/dl Calcium 8.1 L D (8.5-10.1) mg/dl Total Bilirubin (0.2-1) mg/dl AST (15-37) U/L ALT (12-78) U/L Alkaline Phosphatase (45-117) U/L Total Protein (6.4-8.2) gm/dl Albumin (3.4-5.0) gm/dl Globulin (2.5-4.0) gm/dl Albumin/Globulin Ratio (0.9-2) Lipase (73-393) U/L Urine Color Urine Appearance (Clear) Urine pH (4.5-7.5) Ur Specific [place] (1.000-1.030) Urine Protein (Negative) Urine Glucose (UA) (Negative) Urine Ketones (Negative) Urine Blood (Negative) Urine Nitrite (Negative) Urine Bilirubin (Negative) Urine Urobilinogen (Negative) Ur Leukocyte Esterase (Negative) Urine WBC (Auto) (0-5) /hpf Urine RBC (Auto) (0-4) /hpf U Hyaline Cast (Auto) (0-5) /lpf U Epithel Cells (Auto) (0-5) /lpf Urine Bacteria (Auto) (Negative) COVID-19 Eval Order Hepatitis C Ab Screen (Neg) SARS-CoV-2, RNA, NAAT NEGATIVE (NEGATIVE) 12/25/20 12/25/20 12/25/20 Range/Units 13:21 11:11 11:11 WBC (4.8-10.8) K/uL RBC (4.2-5.4) M/uL Hgb (12.0-16.0) g/dL Hct (37-47) % MCV (80-100) fL MCH (25-34) pg MCHC (32-36) g/dL RDW Std Deviation (36.4-46.3) fL RDW Coeff of Maritza (11.5-14.5) % Plt Count (130-400) K/uL MPV (7.4-10.4) fL Immature Gran % (Auto) % Neut % (Auto) % Lymph % (Auto) % Pine % (Auto) % Eos % (Auto) % Baso % (Auto) % Neut # (Auto) (1.4-6.5) K/uL Lymph # (Auto) (1.2-3.4) K/uL Pine # (Auto) (0.11-0.59) K/uL Eos # (Auto) (0-0.5) K/uL Baso # (Auto) (0-0.2) K/uL Immature Gran # (Auto) (0.00-0.02) K/uL Sodium (136-145) mmol/L Potassium (3.5-5.1) mmol/L Chloride (98-107) mmol/L Carbon Dioxide (21-32) mmol/L Anion Gap (3-11) BUN (7-18) mg/dl Creatinine (0.6-1.2) mg/dl Est Cr Clr Drug Dosing ml/min Est GFR ( Amer) Est GFR (Non-Af Amer) BUN/Creatinine Ratio (10-20) Glucose (70-99) mg/dl Calcium (8.5-10.1) mg/dl Total Bilirubin (0.2-1) mg/dl AST (15-37) U/L ALT (12-78) U/L Alkaline Phosphatase (45-117) U/L Total Protein (6.4-8.2) gm/dl Albumin (3.4-5.0) gm/dl Globulin (2.5-4.0) gm/dl Albumin/Globulin Ratio (0.9-2) Lipase (73-393) U/L Urine Color Dark Yellow Urine Appearance Clear (Clear) Urine pH 5.0 (4.5-7.5) Ur Specific [place] > 1.045 H (1.000-1.030) Urine Protein Negative (Negative) Urine Glucose (UA) Negative (Negative) Urine Ketones Trace H (Negative) Urine Blood Trace H (Negative) Urine Nitrite Negative (Negative) Urine Bilirubin 1+ H (Negative) Urine Urobilinogen Negative (Negative) Ur Leukocyte Esterase Negative (Negative) Urine WBC (Auto) 1-5 (0-5) /hpf Urine RBC (Auto) 10-30 H (0-4) /hpf U Hyaline Cast (Auto) 5-10 H (0-5) /lpf U Epithel Cells (Auto) >30 H (0-5) /lpf Urine Bacteria (Auto) Negative (Negative) COVID-19 [facility] C Ab Screen Neg (Neg) SARS-CoV-2, RNA, NAAT (NEGATIVE) 12/25/20 12/25/20 Range/Units 11:11 11:11 WBC 9.56 (4.8-10.8) K/uL RBC 5.00 (4.2-5.4) M/uL Hgb 16.0 (12.0-16.0) g/dL Hct 45.3 (37-47) % MCV 90.6 (80-100) fL MCH 32.0 (25-34) pg MCHC 35.3 (32-36) g/dL RDW Std Deviation 42.4 (36.4-46.3) fL RDW Coeff of Maritza 12.8 (11.5-14.5) % Plt Count 297 (130-400) K/uL MPV 11.0 H (7.4-10.4) fL Immature Gran % (Auto) 0.2 % Neut % (Auto) 67.3 % Lymph % (Auto) 21.0 % Pine % (Auto) 8.7 % Eos % (Auto) 2.6 % Baso % (Auto) 0.2 % Neut # (Auto) 6.43 (1.4-6.5) K/uL Lymph # (Auto) 2.01 (1.2-3.4) K/uL Pine # (Auto) 0.83 H (0.11-0.59) K/uL Eos # (Auto) 0.25 (0-0.5) K/uL Baso # (Auto) 0.02 (0-0.2) K/uL Immature Gran # (Auto) 0.02 (0.00-0.02) K/uL Sodium 138 (136-145) mmol/L Potassium 3.2 L (3.5-5.1) mmol/L Chloride 102 (98-107) mmol/L Carbon Dioxide 30 (21-32) mmol/L Anion Gap 6.0 (3-11) BUN 22 H (7-18) mg/dl Creatinine 1.29 H (0.6-1.2) mg/dl Est Cr Clr Drug Dosing 36.3 ml/min Est GFR ( Amer) 48.2 Est GFR (Non-Af Amer) 41.6 BUN/Creatinine Ratio 16.7 (10-20) Glucose 93 (70-99) mg/dl Calcium 10.3 H (8.5-10.1) mg/dl Total Bilirubin 0.9 (0.2-1) mg/dl AST 15 (15-37) U/L ALT 17 (12-78) U/L Alkaline Phosphatase 87 (45-117) U/L Total Protein 7.5 (6.4-8.2) gm/dl Albumin 3.9 (3.4-5.0) gm/dl Globulin 3.6 (2.5-4.0) gm/dl Albumin/Globulin Ratio 1.1 (0.9-2) Lipase 219 (73-393) U/L Urine Color Urine Appearance (Clear) Urine pH (4.5-7.5) Ur Specific [place] (1.000-1.030) Urine Protein (Negative) Urine Glucose (UA) (Negative) Urine Ketones (Negative) Urine Blood (Negative) Urine Nitrite (Negative) Urine Bilirubin (Negative) Urine Urobilinogen (Negative) Ur Leukocyte Esterase (Negative) Urine WBC (Auto) (0-5) /hpf Urine RBC (Auto) (0-4) /hpf U Hyaline Cast (Auto) (0-5) /lpf U Epithel Cells (Auto) (0-5) /lpf Urine Bacteria (Auto) (Negative) COVID-19 Eval Order Hepatitis C Ab Screen (Neg) SARS-CoV-2, RNA, NAAT (NEGATIVE) PG Care Time/CCT Total # of Minutes Spent Total Time Spent with Patient: Total time spent is greater than 50% in coordination of care (as documented) at patient's floor/unit and/or counseling patient: Coding Level of Care Code 89796 Subseq Hosp Care Lvl 2 Diagnoses Kidney stones N20.0 Acute kidney injury N17.9 Hydronephrosis, left N13.30 Anxiety F41.9 Hypokalemia E87.6 Hypercalcemia E83.52 IBS (irritable bowel syndrome) K58.9 HLD (hyperlipidemia) E78.5
[2020-12-26 08:19] LABS: BUN Creatinine Ratio 23.2 (10-20); Calcium 8.1 mg/dl (8.5-10.1); Creatinine Clr Calc Pharmacy 53.2 ml/min; Est GFR (African American) 76.6; Est GFR (Non-African American) 66.1; Potassium 4.3 mmol/L (3.5-5.1)
[2020-12-26 08:29] LABS: Basophils # (auto) 0.01 K/uL (0-0.2); Basophils % (auto) 0.2 %; Eosinophils # (auto) 0.07 K/uL (0-0.5); Eosinophils % (auto) 1.1 %; Hematocrit (blood only) 36.7 % (37-47); Hemoglobin 12.5 g/dL (12.0-16.0); Immature Granulocytes # (auto) 0.01 K/uL (0.00-0.02); Immature Granulocytes % (auto) 0.2 %; Lymphocytes # (auto) 1.01 K/uL (1.2-3.4); Lymphocytes % (auto) 16.3 %; Mean Corpuscular Hemoglobin 31.4 pg (25-34); Mean Corpuscular Hgb Conc 34.1 g/dL (32-36); Mean Corpuscular Volume 92.2 fL (80-100); Mean Platelet Volume 11.2 fL (7.4-10.4); Monocytes # (auto) 0.51 K/uL (0.11-0.59); Monocytes % (auto) 8.2 %; Neutrophils # (auto) 4.59 K/uL (1.4-6.5); Platelet Count 212 K/uL (130-400); RDW Standard Deviation 44.1 fL (36.4-46.3); Red Blood Count 3.98 M/uL (4.2-5.4)
[2020-12-26] MEDS: DOCUSATE SODIUM 100 MG CAP PO SCH (09:08)
[2020-12-26] MEDS: buPROPion HCl 100 MG TABLET PO SCH ×2 (09:08→20:09)
--- NOTE | 2020-12-26 09:43 | Urology Consultation ---
Date of Consultation December 26, 2020 Assessment & Plan (1) Kidney stones: Long history of kidney stonecurrently admitted with an obstructing left distal ureteral calculus Plan for cystoscopy, possible ureteroscopy and laser lithotripsy today We will have a stent afterwards Risks, benefits, alternatives discussed She is very anxious to have the stone treated No evidence of infection now, but she did have a urinary tract infection in May which was pansensitive E. coliwith this in mind we will treat with Cipro as a perioperative antibiotic History of Present Illness Attending Physician: Kiah Maxwell MD History of Present Illness 70-year-old female with a long history of kidney stone issues who was admitted through the emergency room over night She has a distal left ureteral calculus of approximately 6 mm, several other small calculi in the kidneys, moderate left hydronephrosis Severe pain with associated nausea No fevers or chills Still with discomfort this morning, tolerable with pain medications but certainly not relieved Anxious to have treatment Has had prior surgery for stones in multiple forms including prior ureteral stenting Allergies Allergy/AdvReac Type Severity Reaction Status Date / Time gadobutrol Allergy Severe ANAPHYLAXIS Verified 12/25/20 13:09 Iodinated Contrast Media Allergy Severe Anaphylaxis Verified 12/25/20 13:09 wheat Allergy Severe DIFFICULTY Verified 12/25/20 13:09 BREATHING Penicillins Allergy Mild Unknown Verified 12/25/20 13:09 shellfish derived Allergy Unknown HIVES Verified 12/25/20 13:09 tetracycline AdvReac Unknown NAUSEA Verified 12/25/20 13:09 Home Medications Medication Instructions Recorded Confirmed Type Cannibis Oil 1 dose TOPICAL DIRECTED PRN 06/01/20 12/25/20 History cholecalciferol (vitamin D3) 1,000 unit PO DAILY 06/01/20 12/25/20 History [Vitamin D3] docusate sodium 200 mg PO DAILY 06/01/20 12/25/20 History epinephrine 0.3 mg IM DIRECTED PRN 06/01/20 12/25/20 History hydrochlorothiazide 25 mg PO BID 06/01/20 12/25/20 History potassium citrate 15 meq PO BID 06/01/20 12/25/20 History trazodone 50 mg PO HS 06/01/20 12/25/20 History Cannibis 1 tab PO DAILY 12/25/20 History acetaminophen [Tylenol Extra 2,000 mg PO Q6H PRN 12/25/20 12/25/20 History Strength] bupropion HCl 100 mg PO BID 12/25/20 12/25/20 History Patient History Medical History Basal cell carcinoma of chin (01/10/17) "Slow growing mass of the left chin Status post punch biopsy 01/10/2017 Basal cell carcinoma, infiltrative/morpheaform type, "high risk" Status post wide local excision of left chin morpheaform basal cell carcinoma 02/26/2017 Status post reexcision with reconstruction and Level I lymphadenectomy 03/07/2017 Stage pT1 pN1 Status post completion of radiation therapy 05/31/2017. Received 6000 cGy." On 03/29/17 11:22 Laura Muhammad wrote "Slow growing mass of the left chin Status post punch biopsy 01/10/2017 Basal cell carcinoma, infiltrative/morpheaform type, "high risk" Status post wide local excision of left chin morpheaform basal cell carcinoma 02/26/2017 Status post reexcision with reconstruction and Level I lymphadenectomy 03/07/2017 Stage pT1 pN0" On 03/29/17 10:23 Nakita Matias wrote "Slow growing mass of the left chin Status post punch biopsy 01/10/2017 Basal cell carcinoma, infiltrative/morpheaform type Status post wide local excision of left chin morpheaform basal cell carcinoma 02/26/2017 Status post reexcision with reconstruction and Level I lymphadenectomy 03/07/2017 Stage pT1 pN0" Bronchitis Kidney stones Surgical History H/O: hysterectomy Social History Smoking Status: Never smoker Hx Alcohol Use: Yes Hx Substance Use: No Preferred Language: Romansh Communication Ability: Effective Supervisor Sandblaster Required: No Beliefs That Will Affect Care: None Current Living Situation: Spouse Other Information That Helps Us Care for You: No Feels Safe at Home: Yes Safety Concerns: Feels Safe At This Time Assistive Devices: Glasses Review of Systems Constitutional: no fever, no chills and no fatigue Eyes: no worsening vision Ear, Nose, Mouth, Throat: no facial pain and no pain with swallowing Respiratory: no cough and no dyspnea Cardiovascular: no chest pain and no palpitations Gastrointestinal: no abdominal pain, no nausea and no vomiting Genitourinary: no dysuria, no difficulty urinating, no urinary frequency and no hematuria Musculoskeletal: no back pain Integumentary: no rash and no urticaria Neurologic: no gait abnormality and no unsteadiness Psychiatric: no behavioral changes and no depression Endocrine: no fatigue Physical Exam Constitutional: well developed and well nourished Neck: neck nontender Respiratory: normal respiratory effort; no respiratory distress and does not use accessory muscles Cardiovascular: Rate/Rhythm: regular rate Vessels: radial pulses present Extremities: no edema Gastrointestinal (Abdomen): Inspection/Auscultation: abdomen normal to inspection Percussion/Palpation: abdomen soft; abdomen nontender and no guarding Musculoskeletal: Head/Neck/Chest: normocephalic and head atraumatic Extremities: extremities normal to inspection Skin: no rashes and no lesions Trauma: no evidence of skin trauma Neurologic: awake; not obtunded Speech / Cognition: normal speech Motor/Sensory: no tremor Psychiatric: Orientation: alert and oriented x 3 Lymphatic: no lymphadenopathy Results & Data ([facility]) Vital Signs (Past 12 Hours) Vital Signs Temp Pulse Pulse Resp BP Pulse Ox 12/26/20 07:43 36.9 C 69 18 90/53 L 94 12/26/20 05:45 108/69 12/25/20 22:35 36.4 C L 69 16 82/45 L 92 PG Care Time/CCT Total # of Minutes Spent Total Time Spent with Patient: Total time spent is greater than 50% in coordination of care (as documented) at patient's floor/unit and/or counseling patient: Coding Level of Care Code 11240 Inpt Consult Level 4 Diagnoses Kidney stones N20.0
[2020-12-26] MEDS ORDERED: PROPOFOL IV EMULSION 10 MG/ML 20 ML VIAL IV ONE (09:55)
[2020-12-26] MEDS ORDERED: LIDOCAINE HCL 2% 2 ML VIAL/AMP(20MG/ML) INFIL ONE (09:55)
[2020-12-26] MEDS ORDERED: DEXAMETHASONE SOD INJ 4 MG/ML VIAL ONE (09:55)
[2020-12-26] MEDS ORDERED: fentaNYL citrate 100 MCG/2 ML VIAL ONE ×2 (09:55→11:45)
[2020-12-26] MEDS ORDERED: MIDAZOLAM HCL 1 MG/ML 2ML VIAL ONE (09:55)
[2020-12-26] MEDS ORDERED: ONDANSETRON INJ 2 MG/ML 2 ML VIAL ONE (09:55)
[2020-12-26] MEDS ORDERED: ATROPINE SULFATE 0.1 MG/ML 10ML SYR IV PRN (09:57)
[2020-12-26] MEDS ORDERED: fentaNYL citrate 100 MCG/2 ML VIAL IV PRN (09:57)
[2020-12-26] MEDS ORDERED: ePHEDrine sulfate 50 MG/ML AMP IV PRN (09:57)
[2020-12-26] MEDS ORDERED: ONDANSETRON INJ 2 MG/ML 2 ML VIAL IV PRN (09:57)
--- NOTE | 2020-12-26 09:59 | Anesthesiology Consultation ---
Date of Service December 26, 2020 Assessment & Plan (1) Encounter for pre-operative examination: Chart Review Chart Review: manager service desk initiated History Surgery Operation Date: 12/26/20 10:15 Proposed Procedures p Cystoscopy - Olegario Contreras MD s Laser Lithotripsy Holmium - Olegario Contreras MD Height/Weight Height: 5 ft 2 in Weight: 68.5 kg Allergies Allergy/AdvReac Type Severity Reaction Status Date / Time gadobutrol Allergy Severe ANAPHYLAXIS Verified 12/25/20 13:09 Iodinated Contrast Media Allergy Severe Anaphylaxis Verified 12/25/20 13:09 wheat Allergy Severe DIFFICULTY Verified 12/25/20 13:09 BREATHING Penicillins Allergy Mild Unknown Verified 12/25/20 13:09 shellfish derived Allergy Unknown HIVES Verified 12/25/20 13:09 tetracycline AdvReac Unknown NAUSEA Verified 12/25/20 13:09 Medications Home Medications Medication Instructions Recorded Confirmed Last Taken Cannibis Oil 1 dose TOPICAL DIRECTED PRN 06/01/20 12/25/20 12/24/20 cholecalciferol (vitamin D3) 1,000 unit PO DAILY 06/01/20 12/25/20 Unknown [Vitamin D3] docusate sodium 200 mg PO DAILY 06/01/20 12/25/20 12/24/20 epinephrine 0.3 mg IM DIRECTED PRN 06/01/20 12/25/20 Unknown hydrochlorothiazide 25 mg PO BID 06/01/20 12/25/20 12/24/20 potassium citrate 15 meq PO BID 06/01/20 12/25/20 12/24/20 trazodone 50 mg PO HS 06/01/20 12/25/20 12/24/20 Cannibis 1 tab PO DAILY 12/25/20 12/24/20 acetaminophen [Tylenol Extra 2,000 mg PO Q6H PRN 12/25/20 12/25/20 12/25/20 06:00 Strength] bupropion HCl 100 mg PO BID 12/25/20 12/25/20 12/24/20 Active Medications Generic Name Dose Route Start Last Admin Trade Name Freq PRN Reason Stop Dose Admin Bupropion HCl 100 mg 12/25/20 21:00 12/26/20 09:08 Bupropion Hcl 100 Mg Tablet PO 01/24/21 20:59 100 mg BID BETH Administration Docusate Sodium 200 mg 12/26/20 09:00 12/26/20 09:08 Docusate Sodium 100 Mg Cap PO 01/25/21 08:59 200 mg DAILY BETH Administration Heparin Sodium (Porcine) 5,000 units 12/25/20 22:00 12/26/20 05:41 Heparin Sod 5,000 Unit/0.5 Ml Vial SQ 01/24/21 21:59 5,000 units Q8 BETH Administration Hydrochlorothiazide 25 mg 12/25/20 21:00 12/25/20 20:21 Hydrochlorothiazide 25 Mg Tab PO 01/24/21 20:59 Not Given BID BETH Potassium Chloride 40 meq/ 1,020 mls @ 125 mls/hr 12/25/20 14:45 12/26/20 09:08 Sodium Chloride IV 01/24/21 14:44 125 mls/hr .Q8H10M BETH Infusion Prochlorperazine 5 mg/ Syringe 5 mls @ 5 mls/min 12/25/20 15:10 12/25/20 19:33 IV 01/24/21 15:09 5 mls/min Q4H PRN Administration Nausea And Vomiting Ketorolac Tromethamine 15 mg 12/25/20 17:13 12/26/20 07:05 Ketorolac Tromethamine 15 Mg/Ml Vial IV 12/30/20 17:12 15 mg Q6H PRN Administration Pain Ondansetron HCl 4 mg 12/25/20 14:20 12/26/20 05:49 Ondansetron Inj 2 Mg/Ml 2 Ml Vial IV 01/24/21 14:19 4 mg Q4H PRN Administration Nausea Trazodone HCl 50 mg 12/25/20 21:00 12/25/20 20:21 Trazodone Hcl 50 Mg Tab PO 01/24/21 20:59 50 mg HS BETH Administration Past Medical History Medical History Basal cell carcinoma of chin (01/10/17) "Slow growing mass of the left chin Status post punch biopsy 01/10/2017 Basal cell carcinoma, infiltrative/morpheaform type, "high risk" Status post wide local excision of left chin morpheaform basal cell carcinoma 02/26/2017 Status post reexcision with reconstruction and Level I lymphadenectomy 03/07/2017 Stage pT1 pN1 Status post completion of radiation therapy 05/31/2017. Received 6000 cGy." On 03/29/17 11:22 Laura Muhammad wrote "Slow growing mass of the left chin Status post punch biopsy 01/10/2017 Basal cell carcinoma, infiltrative/morpheaform type, "high risk" Status post wide local excision of left chin morpheaform basal cell carcinoma 02/26/2017 Status post reexcision with reconstruction and Level I lymphadenectomy 03/07 Stage pT1 pN0" On 03/29/17 10:23 Nakita Alex Matias wrote "Slow growing mass of the left chin Status post punch biopsy 01/10/2017 Basal cell carcinoma, infiltrative/morpheaform type Status post wide local excision of left chin morpheaform basal cell carcinoma 02/26/2017 Status post reexcision with reconstruction and Level I lymphadenectomy 03/07/2017 Stage pT1 pN0" Bronchitis Kidney stones Past Surgical History Surgical History H/O: hysterectomy Social History Smoking Status: Never smoker Hx Alcohol Use: Yes alcohol intake frequency: holidays/special occasions only Hx Substance Use: No substance use type: does not use Physical Exam Vital Signs Last Vital Signs Temp 98.4 F 12/26/20 07:43 Pulse 69 12/26/20 07:43 Resp 18 12/26/20 07:43 BP 90/53 L 12/26/20 07:43 Pulse Ox 94 12/26/20 07:43 Testing Laboratory Results 12/26/20 07:21 12/26/20 07:21 Urine Color Dark Yellow 12/25/20 11:11 Urine Appearance Clear (Clear) 12/25/20 11:11 Urine pH 5.0 (4.5-7.5) 12/25/20 11:11 Ur Specific [place] > 1.045 (1.000-1.030) H 12/25/20 11:11 Urine Protein Negative (Negative) 12/25/20 11:11 Urine Glucose (UA) Negative (Negative) 12/25/20 11:11 Urine Ketones Trace (Negative) H 12/25/20 11:11 Urine Nitrite Negative (Negative) 12/25/20 11:11 Ur Leukocyte Esterase Negative (Negative) 12/25/20 11:11 Urine WBC (Auto) 1-5 /hpf (0-5) 12/25/20 11:11 Urine RBC (Auto) 10-30 /hpf (0-4) H 12/25/20 11:11 U Hyaline Cast (Auto) 5-10 /lpf (0-5) H 12/25/20 11:11 U Epithel Cells (Auto) >30 /lpf (0-5) H 12/25/20 11:11 Urine Bacteria (Auto) Negative (Negative) 12/25/20 11:11 Electrocardiogram Date: 12/26/20 Findings: + NSR @ (71 bpm)
[2020-12-26] MEDS ORDERED: CIPROFLOXACIN / D5W 400 MG/200 ML BAG IV SCH (10:00)
[2020-12-26] MEDS ORDERED: SCOPOLAMINE 1 MG TDSY TD ONE (10:33)
--- NOTE | 2020-12-26 11:17 | Operative Report ---
PG Post Operative Report Pre & Post Diagnosis Operation Date: 12/26/20 10:15 Pre-Op Diagnosis: HYDRONEPHROSIS; left ureteral calculus Post-Op Diagnosis: HYDRONEPHROSIS; left ureteral calculus I identified the patient and participated in the time-out.: Yes Procedure Operation Date: 12/26/20 10:15 Actual Procedures p Cystoscopy, ureteroscopy, laser lithotripsy and left stent placement(Left) - Olegario Contreras MD Surgeon Rafal Contreras MD Leaf Blender none Estimated Blood Loss 0 Findings Consistent with Post-Op Diagnosis Specimens none Description of Procedure The patient was identified in the preoperative holding area, appropriate informed consents were reviewed and completed and the patient was transferred to the operative suite. Upon arrival, appropriate antibiotics and anesthesia were administered and the patient was placed in dorsal lithotomy position and prepped and draped in sterile fashion. To begin the case to pass a 20 Spanish cystoscope with 30 degree lens. Inspection revealed healthy appearing bladder. No stones were seen within the bladder. The left ureteral orifice was cannulated with a sensor wire which advanced the kidney without difficulty. I then reentered the bladder with a semirigid ureteroscope. I was able to guide this into the distal ureter. I encountered a stone that was behind an edematous band approximately 2 cm from the UO. Above the level of this edematous band there was notable hydronephrosis. I was able to advance the scope to the level of the UPJ without difficulty. I then passed a 272 m laser fiber and I fragmented the stone into numerous small pieces, irrigating the majority of these pieces out of the ureter. All remaining pieces were certainly small enough to pass spontaneously. A 6 Spanish by 24 cm double-J ureteral stent was placed with a good curl in the kidney as well as the bladder. A string was left attached to the distal aspect of this stent and taped to her inner thigh. The case was subsequently concluded and she was extubated and taken to the PACU in stable condition. There were no complications. I attest to the content of the Intraoperative Record and any orders documented therein. Any exceptions are noted below.
--- NOTE | 2020-12-26 11:29 | Fluoroscopy Report ---
FL KUB CLINICAL HISTORY: LT CYSTO, LASER, RETRO COMPARISON STUDY: CT of the abdomen and pelvis December 25, 2020. FLUOROSCOPY TIME: 6.1 seconds. FLUOROSCOPIC IMAGES: 1 FINDINGS: Fluoroscopy was provided during cystoscopy with lithotripsy and left ureteral stent inserti on. The proximal aspect of the stent projects over the left renal pelvis. IMPRESSION: Fluoroscopy provided for cystoscopy, lithotripsy and left ureteral stent insertion. ACT 112: Negative or not required by law. Electronically signed by: Rufino Stokes M.D. 12/26/2020 11:28 AM
--- NOTE | 2020-12-26 11:35 | Anesthesiology Progress Note ---
Date of Service December 26, 2020 Anesthesia Post Procedure Vital Signs Vital Signs: Temp Pulse Pulse Pulse Pulse Resp BP 12/26/20 07:43 98.4 F 69 18 12/26/20 05:45 12/25/20 22:35 97.5 F L 69 16 12/25/20 14:33 98.1 F 84 18 12/25/20 13:48 68 15 115/77 12/25/20 13:30 85 24 12/25/20 13:02 68 14 12/25/20 13:01 67 13 116/68 12/25/20 13:00 68 15 12/25/20 12:31 66 12 12/25/20 12:30 67 17 114/60 12/25/20 12:00 64 15 125/90 12/25/20 11:47 58 L 13 132/76 BP Pulse Ox 12/26/20 07:43 90/53 L 94 12/26/20 05:45 108/69 12/25/20 22:35 82/45 L 92 12/25/20 14:33 123/70 96 12/25/20 13:48 98 12/25/20 13:30 98 12/25/20 13:02 100 12/25/20 13:01 100 12/25/20 13:00 99 12/25/20 12:31 98 12/25/20 12:30 99 12/25/20 12:00 99 12/25/20 11:47 99 Pain Intensity Left Flank: Pain Intensity: 5 Transfer of Care Handoff Completed per policy Notes Mental Status: alert / awake / arousable and participated in evaluation Patient Amnestic to Procedure: Yes Nausea / Vomiting: adequately controlled Pain: adequately controlled Airway Patency, RR, SpO2: stable & adequate BP & HR: stable & adequate Hydration State: stable & adequate Anesthetic Complications: no major complications apparent and Pt Satisfied with anesthetic care
--- NOTE | 2020-12-26 13:34 | Electrocardiogram Report ---
Test Reason : Blood Pressure : / mmHG Vent. Rate : 068 BPM Atrial Rate : 068 BPM P-R Int : 146 ms QRS Dur : 082 ms QT Int : 444 ms P-R-T Axes : 045 029 019 degrees QTc Int : 472 ms Normal sinus rhythm Normal ECG When compared with ECG of 25-JUN-2018 21:09, Nonspecific T wave abnormality, worse in Anterior leads Confirmed by Raul Car ([id number]) on 12/26/2020 1:33:49 PM Referred By: REFERRED SELF Confirmed By:Raul Car
--- NOTE | 2020-12-26 13:37 | Electrocardiogram Report ---
Test Reason : Blood Pressure : / mmHG Vent. Rate : 071 BPM Atrial Rate : 071 BPM P-R Int : 142 ms QRS Dur : 074 ms QT Int : 408 ms P-R-T Axes : 077 038 073 degrees QTc Int : 443 ms Poor data quality, interpretation may be adversely affected Normal sinus rhythm Normal ECG When compared with ECG of 25-DEC-2020 12:42, Nonspecific T wave abnormality no longer evident in Anterior leads Confirmed by Rual Car ([id number]) on 12/26/2020 1:36:53 PM Referred By: REFERRED SELF Confirmed By:Raul Car
[2020-12-26] MEDS ORDERED: SODIUM CHLORIDE 0.9% 500 ML IV SCH (16:15)
[2020-12-26] MEDS: traZODone HCL 50 MG TAB PO SCH (20:09)
[2020-12-26] MEDS ORDERED: POTASSIUM CITRATE 10 MEQ TAB PO SCH (21:00)
[2020-12-27] MEDS: HEPARIN SOD 5,000 UNIT/0.5 ML VIAL SQ SCH ×2 (05:18→15:05)
[2020-12-27 06:52] LABS: Hematocrit (blood only) 36.7 % (37-47); Hemoglobin 12.5 g/dL (12.0-16.0); Mean Corpuscular Hemoglobin 31.4 pg (25-34); Mean Corpuscular Hgb Conc 34.1 g/dL (32-36); Mean Corpuscular Volume 92.2 fL (80-100); Mean Platelet Volume 10.9 fL (7.4-10.4); Platelet Count 185 K/uL (130-400); Red Blood Count 3.98 M/uL (4.2-5.4); White Blood Count 8.19 K/uL (4.8-10.8)
[2020-12-27 07:29] LABS: BUN Creatinine Ratio 24.4 (10-20); Calcium 8.1 mg/dl (8.5-10.1); Creatinine Clr Calc Pharmacy 57.1 ml/min; Est GFR (African American) 83.4; Potassium 4.5 mmol/L (3.5-5.1)
--- NOTE | 2020-12-27 08:09 | Urology Progress Note ---
Date of Service December 27, 2020 Assessment & Plan (1) Left ureteral calculus: 70yo F admitted with left flank pain secondary to a 6mm left ureteral stone with hydronephrosis. -POD #1 Cystoscopy, ureteroscopy, laser lithotripsy and left stent placement -Patient clinically doing well with improvement in symptoms post procedure. -Afebrile, VSS. -Labs reviewed, Wbc and creatinine are stable. -Voiding spontaneously without difficulty. -Reviewed plan of care with Dr. Contreras. -Patient is stable for discharge from standpoint. -Will plan to remove tethered stent prior to discharge, likely later today. -Will arrange outpatient follow-up with urology service. -Thank you for allowing us to participate in the acute care of Mrs. Craig. Please reconsult us with additional questions, concerns or changes in patient status. Admission and Anticipated Discharge Date Admission Date: December 25, 2020 Subjective POD #1 Cystoscopy, ureteroscopy, laser lithotripsy and left stent placement with Dr. Contreras on 12/26. Patient examined at bedside this AM. Awake, resting in bed on arrival. Pain has improved, having some minimal stent discomfort. Left ureteral stent w/ tether taped to leg. Having some bladder spasms after voiding. Some hematuria and dysuria as expected. Tolerating PO diet, no nausea or vomiting. Ambulating without dizziness. No fevers or chills. Chart review: Afebrile Wbc 8.19 Hgb 12.5 Cr 0.82 Review of Systems Constitutional: as per Subjective / HPI Gastrointestinal: as per Subjective / HPI Genitourinary: as per Subjective / HPI Physical Exam Constitutional: well developed and well nourished; no acute distress and not ill appearing Respiratory: normal respiratory effort and able to speak in complete sentences; no labored breathing Cardiovascular: Extremities: no calf tenderness Gastrointestinal (Abdomen): Inspection/Auscultation: abdomen normal to inspection; abdomen not distended Skin: Warm and dry. No visible rashes or lesions. Neurologic: awake; not confused Psychiatric: A+Ox3, euthymic affect Results & Data ([facility]) Vital Signs (Past 12 Hours) Vital Signs Temp Pulse Resp BP Pulse Ox 12/27/20 07:43 37.2 C 66 19 93/53 L 95 12/27/20 04:03 96/59 L 12/27/20 03:56 36.7 C 70 16 88/51 L 96 12/26/20 23:17 37.1 C 62 16 115/62 94 PG Care Time/CCT Total # of Minutes Spent Total Time Spent with Patient: Total time spent is greater than 50% in coordination of care (as documented) at patient's floor/unit and/or counseling patient: Coding Level of Care Code 30300 Subseq Hosp Care Lvl 2 Diagnoses Left ureteral calculus N20.1
[2020-12-27] MEDS ORDERED: CHOLECALCIFEROL 1,000 UNITS 25 MCG TAB PO SCH (09:00)
[2020-12-27] MEDS: DOCUSATE SODIUM 100 MG CAP PO SCH (09:19)
[2020-12-27] MEDS: buPROPion HCl 100 MG TABLET PO SCH (09:19)
[2020-12-27] MEDS: KETOROLAC TROMETHAMINE 15 MG/ML VIAL IV PRN (15:04)
--- NOTE | 2021-01-03 16:57 | Discharge Summary ---
Date of Service December 27, 2020 Admission HPI Per Admitting Provider 70 yo female who has history of kidney stones since she was a child. She reports this episode began last week, with left sided back pain and abdominal pain right below her rib cage. She had hoped it would spontaneously improve. She drank plenty of water and a few days ago, he pain intensified and was now located in her groin. Pain continued and was accompanied by nausea and vomiting, which prompted her to come in to the ED. Principal Diagnosis kidney stones Discharge Exam Constitutional: WD/WN, vitals as above comfortable; no acute distress Eyes: + anicteric sclerae and PERRL ENMT: Ears: no hearing impairment Neck: normal visual inspection and trachea midline Respiratory: normal respiratory effort; no respiratory distress, no labored breathing and does not use accessory muscles Auscultation: lungs clear to auscultation bilaterally Cardiovascular: Rate/Rhythm: regular rate and regular rhythm Vessels: radial pulses present Extremities: no edema Gastrointestinal (Abdomen): Inspection/Auscultation: abdomen normal to inspection and normal bowel sounds Percussion/Palpation: + abdomen tender (m inimal, suprapubic) and abdomen soft; no guarding no CVA tenderness Musculoskeletal: Head/Neck/Chest: normocephalic and head atraumatic Extremities: extremities normal to inspection Skin: warm, dry Neurologic: moves all extremities and awake; not obtunded Speech / Cognition: normal speech Motor/Sensory: no tremor Psychiatric: A+Ox3, euthymic affect Lymphatic: no lymphadenopathy Discharge Data Allergies Allergy/AdvReac Type Severity Reaction Status Date / Time gadobutrol Allergy Severe ANAPHYLAXIS Verified 12/25/20 13:09 Iodinated Contrast Media Allergy Severe Anaphylaxis Verified 12/25/20 13:09 wheat Allergy Severe DIFFICULTY Verified 12/25/20 13:09 BREATHING Penicillins Allergy Mild Unknown Verified 12/25/20 13:09 shellfish derived Allergy Unknown HIVES Verified 12/25/20 13:09 tetracycline AdvReac Unknown NAUSEA Verified 12/25/20 13:09 Consultations 12/25/20 13:01 ED Decision to Admit Stat 12/25/20 13:02 Consult Urology Routine Procedures Performed Operation Date: 12/26/20 10:15 Actual Procedures p Cystoscopy, ureteroscopy, laser lithotripsy and left stent placement(Left) - Olegario Contreras MD Ordered Studies 12/25/20 11:20 CT abd pelvis wo con Stat 12/26/20 10:00 FL fluoroscopy <1hr Routine 12/26/20 10:30 FL KUB Routine Hospital Course (1) Kidney stones: * Hx stones on HCTZ * Admitted with L flank pain * Flomax x 1 * CT with 6 mm obstructing calculus in the distal left ureter located just above the vesicoureteral junction with moderate left hydroureteronephrosis. * Urology consulted * S/p Cystoscopy, ureteroscopy, laser lithotripsy and left stent placement(Left) - Olegario Contreras MD on 12/26 * IVF NSS + Kcl -- increased initially from 90cc on admission to 125cc/hr but now that no longer NPO will discontinue * Diet ordered * Pain well controlled * Antiemetics prn * HCTZ held but will resume at discharge (Ca initially >10 with normal albumin. Repeat 8.1 with IVF as above) * Labs in AM * * Will discharge on short course of cipro. (2) Acute kidney injury: * Cr elevated to 1.29 on admission with baseline <1, secondary to obstructing stone as above * IVF provided as above with repeat wnl 0.88 * Holding HCTZ for low BP 97/65 and will repeat BMP in AM * * Creatinine improved. (3) Hydronephrosis, left: * secondary to stone * see above (4) Anxiety: * Continue home wellbutrin 100mg BID (5) Hypokalemia: * K 3.2 on admission -- added to IVF. Likely secondary to HCTZ use. Takes potassium citrate 15meq BID SHINGLE CARRIER (will hold given K 4.3 and holding HCTZ for BP 97/65) for stone prevention * Repeat wnl at 4.3 (6) Hypercalcemia: * Ca 10.3 on admit with albumin 3.9 * Repeat 8.1 after IVF * also add vit D level. On 1,000IU daily (7) IBS (irritable bowel syndrome): * Chronic constipation. probably worsened by elevated calcium * No acute issues however will continue docusate 200mg daily * Day 3 no BM but she states this is not unusual (8) HLD (hyperlipidemia): * Prior lipid panel noted for elevated cholesterol 248. Follows with Dr. Mathew so unsure if repeat done since 2018 but if not would recommend repeating and starting statin if continues to be elevated DVT Prophylaxis * Heparin SQ while inpatient Total Time Total Time Spent Total Time Spent (In Minutes): 32 Total Time Includes: Examination of the Patient, Discharge Planning and Medication Reconciliation Discharge Plan Discharge Items Patient Disposition: Home - Self-Care Reason For Visit: HYDRONEPHROSIS Discharge Diagnosis: Kidney stone with obstruction Goals: You have been hospitalized for an urgent problem which required surgery. During your stay at [facility], we have made an effort to correct the problem that brought you to the hospital while keeping you as comfortable as possible. Surgery and medications were used to bring your condition under control and your discharge instructions will include directions for any medications you should take after leaving the hospital. Please make sure to follow the advice of your surgeon regarding follow up with the surgeon and with your primary care provider. Activity: Resume your previous activity Non-emergency contact: Primary Care Provider and Urologist Call non-emergency contact if: you have any medication questions, your symptoms worsen and your pain is concerning for you Follow-up/Referrals: Olegario Contreras MD [Physician] - 01/03/21 10:10 am () Hardeep Mathew MD [Primary Care Provider] - 12/29/20 11:10 am Diet: Regular Addtl Attending Provider Instructions: You have been hospitalized for left sided back pain and abdominal pain and found to have an obstructing kidney stone. Urology was consulted and you underwent cystoscopy with lithotripsy and stent placement with Dr. Contreras. * Your urine was checked and did not appear to have any infection, however given procedure you have been sent a prescription of ciprofloxacin to complete by Urology. * You should follow up with him in the next 7-10 days in the office. They will call with an appointment but if you do not hear from them, please call their office on Sunday at . ou have been sent a prescription for pain pills as well for breakthrough pain but please be aware that these also contain Tylenol and you should not exceed 3,000mg in a 24 hour period of time. Please follow up with your primary care provider in the next 1-2 weeks to monitor your progress after hospitalization. Please return to the emergency department with any worsening pain, fever, abdominal pain, or for any other symptoms that are concerning for you. It has been a pleasure being a part of the medical team providing for you while you have been in the hospital. Take care! Pending Studies at Discharge: No Stand-Alone Forms: My [facility], Opioid Pain Management, Smoking Cessation Medications and DC Order Prescriptions: New hydrocodone-acetaminophen 5-325 mg tablet 1 tab PO Q6H PRN (Reason: pain) Qty: 15 RF: 0 ciprofloxacin HCl [Cipro] 500 mg tablet 500 mg PO BID Qty: 6 RF: 0 Continued trazodone 50 mg tablet 50 mg PO HS RF: 0 docusate sodium 100 mg Capsule 200 mg PO DAILY RF: 0 hydrochlorothiazide 25 mg tablet 25 mg PO BID RF: 0 epinephrine 0.3 mg/0.3 mL auto-injector 0.3 mg IM DIRECTED PRN (Reason: Anaphylaxis) RF: 0 cholecalciferol (vitamin D3) [Vitamin D3] 25 mcg (1,000 unit) Capsule 1,000 unit PO DAILY RF: 0 potassium citrate 15 mEq tablet extended release 15 meq PO BID RF: 0 Cannibis Oil 1 dose topical DIRECTED PRN (Reason: Pain) RF: 0 bupropion HCl 100 mg tablet 100 mg PO BID RF: 0 Cannibis 1 tab PO DAILY RF: 0 acetaminophen [Tylenol Extra Strength] 500 mg Tablet 2,000 mg PO Q6H PRN (Reason: Pain) RF: 0 No Action ketorolac 10 mg tablet 10 mg PO BID PRN (Reason: pain) Qty: 7 RF: 0 tamsulosin 0.4 mg capsule 0.4 mg PO HS Qty: 30 RF: 0 Discharge Orders: Discharge Order (Routine); Ordered 12/27/20 Ordered By: Ashok Hurst Admission Data Admit Date/Time: 12/25/20 13:05 Attending Provider: Ashok Hurst Admit Provider: Ashok Hurst Primary Care Provider: Hardeep Mathew Other Providers: Ashok Hurst ; Olegario Contreras Other Interventions: Discharge Summary Assessment (RN) Last Done: 12/27/20 13:17 Coding Level of Care Code D/C Day Management >30 mins Diagnoses Kidney stones N20.0 Acute kidney injury N17.9 Hydronephrosis, left N13.30 Anxiety F41.9 Hypokalemia E87.6 Hypercalcemia E83.52 IBS (irritable bowel syndrome) K58.9 HLD (hyperlipidemia) E78.5
== END 2020-12-27 15:49 | disposition home or self-care (01) ==
LOC: ED 10:37 → 3N 13:05 → SUATTDRO 13:05 → 3N 14:01